=== PATIENT | male | born 1935 | race Caucasian/White ===

== ENCOUNTER → 2016-12-04 | Outpatient (CLI) | payer OTHER, MEDICARE | LOC: BHFA 08:30 | PROVIDERS: ATTEND Internal Medicine Interventional Cardiology | DX: R55 Syncope and collapse (principal) | CPT/HCPCS: 78452; 93017; A9500 ==

== ENCOUNTER → 2018-07-21 | Outpatient (CLI) | payer OTHER, MEDICARE | LOC: BMCIMAGING 11:19 | PROVIDERS: ATTEND Internal Medicine | DX: M25.852 Other specified joint disorders, left hip (principal); M25.851 Other specified joint disorders, right hip; M16.0 Bilateral primary osteoarthritis of hip; M53.3 Sacrococcygeal disorders, not elsewhere classified ==

== ENCOUNTER → 2018-09-22 | Outpatient (CLI) | payer OTHER, MEDICARE | LOC: BMCIMAGING 07:59 | PROVIDERS: ATTEND Internal Medicine | DX: M79.672 Pain in left foot (principal) ==